=== PATIENT | male | born 1950 | race Caucasian/White ===

== ENCOUNTER → 2025-01-24 | Outpatient (CLI) | payer MEDICARE, SELFPAY ==
[2025-01-24 13:27] LABS: Hematocrit 39.8 % (40-54); Hemoglobin 13.1 g/dL (13.0-16.5); Immature Granulocytes Count 0.020 X10^3/uL (0.0-0.0); Mean Corp Hgb Conc 32.9 g/dL (32-36); Mean Corpuscular Volume 86.9 fL (80-94); Mean Platelet Vol. 9.9 fl (6.2-12.0); NRBC Flagged by Analyzer 0 % (0-5); Platelet Count 168 K/mm3 (150-450); RBC Distribution Width CV 15.3 % (11.6-14.6); RBC Distribution Width SD 48.8 fl (35.1-43.9); Red Blood Count 4.58 M/mm3 (4.6-6.2); White Blood Count 6.6 K/mm3 (4.4-11.0)
--- NOTE | 2025-01-24 13:35 | CT_ITS ---
PROCEDURE: EXTREMITY LOWER WITHOUT CONTRA 01/24/2025 REASON FOR EXAM: PRE OP TECHNIQUE: Procedure Code: CTELWO Modality: CT Procedure: EXTREMITY LOWER WITHOUT CONTRA Coronal and Sagittal reconstruction series were provided. CONTRAST: None One or more dose reduction techniques were used (e.g., Automated exposure control, adjustment of the mA and/or kV according to patient size, use of iterative reconstruction technique). RADIATION DOSE SUMMARY: DLP: 3336 mGycm COMPARISON: None FINDINGS: The hip joint appears intact. There is a 0.9 cm corticated osteochondral fragment at the greater trochanter. The included pelvic bones appear intact. There is hardware in the medial compartment of the knee. There is a 3.0 x 2.0 by 1.6 cm circumscribed lucent lesion in the intercondylar region of the proximal tibia, which can represent hardware failure, or an intraosseous ganglion. There is a large joint effusion at the knee. There is a 0.2 cm corticated osteochondral fragment in the lateral joint space. There is no soft tissue mass or adenopathy. Vascular calcifications are visible. CT/Extremity Lower without Contra IMPRESSION: There is a 0.9 cm corticated osteochondral fragment at the greater trochanter. There is hardware in the medial compartment of the knee. There is a 3.0 x 2.0 b y 1.6 cm circumscribed lucent lesion in the intercondylar region of the proximal tibia, which can represent hardware failur e, or an intraosseous ganglion. There is a large joint effusion at the knee. There is a 0.2 cm corticated osteo chondral fragment in the lateral joint space. Reading Location: [facility]
[2025-01-24 14:17] LABS: CRP < 3.00 mg/L (0.0-3.0)
== END | disposition home or self-care (01) ==
PROVIDERS: PCP Family Medicine; Referring Provider Specialist; Visit Provider Specialist
DX: Z01.818 Encounter for other preprocedural examination (principal); T84.033A Mechanical loosening of internal left knee prosthetic joint, initial encounter; X58.XXXA Exposure to other specified factors, initial encounter; M21.162 Varus deformity, not elsewhere classified, left knee; Z96.652 Presence of left artificial knee joint
CPT/HCPCS: 36415; 73700; 85025; 85652; 86140

== ENCOUNTER 2025-02-17 10:02 | Observation (INO) | payer MEDICARE, SELFPAY ==
--- NOTE | 2025-02-04 16:13 | PAT.ANESEVAL ---
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 When Was Last Pacemaker Check QUESTION #4 FULL TEXT: You/Your Family Experience fever (hyperthermia) with Anesthesia Last Oral Intake Last Oral intake: Last Oral Intake NPO since Meds taken in AM with sips of water? Meds patient instructed to take am of surgery PONV PONV - network/telecom engineer: PONV - network/telecom engineer Female No 02/04/25 13:54 HX of Motion Sickness No 02/04/25 13:54 HX of N/V After Surgery No 02/04/25 13:54 Non-Smoker Yes 02/04/25 13:54 Duration of Surgery greater Yes 02/04/25 13:54 than 60 minutes Number of Risk Factors 2 02/04/25 13:54 PONV Score Moderate Risk 02/04/25 13:54 Height & Weight Height & Weight: Anesthesia: Height & Weight Height 5 ft 10 in 02/23/15 20:18 Respiratory Assessment Respiratory Assessment - network/telecom engineer: Respiratory Tract Infection Hx - network/telecom engineer Hx Respiratory Tract Infection No 02/04/25 13:54 STOP Sleep Apnea STOP Sleep Apnea - network/telecom engineer: STOP Sleep Apnea - network/telecom engineer Hx Hypertension No 02/04/25 13:54 Hx Sleep Apnea Yes 02/04/25 13:54 CPAP Yes: NONCOMPLIANT 02/04/25 13:54 BIPAP No 02/04/25 13:54 Do you snore loudly (louder than talking or can be heard Do you often feel tired/ fatigued/ sleepy during daytime? Has anyone observed you stop breathing during sleep? STOP Results Positive 02/04/25 13:54 QUESTION #5 FULL TEXT : Do you snore loudly (louder than talking or can be heard through closed doors)? 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 Specify any problems Hx of Preganancy in last 3 N/A 02/04/25 13:54 Months Nurse Filling Out Transfusion DSCHRIBER 02/04/25 13:54 & Questions: Date: 02/04/25 02/04/25 13:54 Time: 13:59 02/04/25 13:54 Patient unable to answer at this time (ie. confused, unrespo /Reproduction History /Reproductive History - network/telecom engineer: /Reproductive Hx- network/telecom engineer Hx Now No 02/04/25 13:54 Gestational Age (in weeks): EDC: Hx Hx Para Hx Section SAB No 02/04/25 13:54 Does the father of the baby or his family experience fever w Father of the baby Malignant Hypertension history comment [facility] Medical History (Updated 02/04/25 @ 14:11 by Vivian Calero) Loss of hearing Wears glasses Wears dentures Cancer Depression Diabetes Bladder disease Arthritis High cholesterol Pulmonary embolism DVT (deep venous thrombosis) Injury of back Back pain TIA (transient ischemic attack) Former smoker Shortness of breath on exertion CPAP (continuous positive airway pressure) dependence Leg cramps History of edema Cardiology follow-up encounter History of stress test Home Medications ?Medication ?Instructions ?Recorded ?Last Taken ?Type fluoxetine 20 mg capsule 20 mg PO QHS 02/14/13 02/23/15 History warfarin 5 mg tablet (Jantoven) 2.5 mg PO MO 02/14/13 02/23/15 History cholecalciferol (vitamin D3) 25 50 mcg PO DAILY 02/04/25 Unknown History mcg (1,000 unit) capsule (Vitamin D3) fenofibrate 160 mg tablet 160 mg PO QHS 02/04/25 Unknown History glimepiride 1 mg tablet 1 mg PO QHS 02/04/25 Unknown History pioglitazone 30 mg tablet 30 mg PO QHS 02/04/25 Unknown History tramadol 50 mg tablet 50 mg PO Q12H PRN pain 02/04/25 Unknown History warfarin 5 mg tablet 5 mg PO SUTUTHSA 02/04/25 Unknown History Allergy/AdvReac Type Severity Reaction Status Date / Time No Known Allergies Allergy Verified 02/04/25 13:47 Surgical History (Updated 02/04/25 @ 14:11 by Vivian Calero) Hx of gastric bypass Hx of right knee surgery Hx of left knee surgery Hx of left knee surgery Hx laparoscopic cholecystectomy History of carpal tunnel surgery of right wrist History of carpal tunnel surgery of left wrist Hx of colonoscopy Social History Smoking Status: Former smoker Audit: Pertinent Findings Pertinent Findings EKG Perinent findings: 01/2025: SR with PACs, prolonged QTc (488 ms) Recommendation Anesthesia Recommendation Anesthesia recommendation: OPTIMIZED for anesthesia (EKG on DOS)
--- NOTE | 2025-02-05 10:32 | HP.PCM_ITS ---
History and Physical History and Physical? Patient Name: Villa Paulino : 1950From:? LEONIDES ANDRE PA-C? DATE OF PRE-OPERATIVE EXAM: 02/03/2025 DATE OF SURGERY:? 02/17/2025 SCHEDULED PROCEDURE:? Left knee conversion unicompartmental knee replacement to a total knee arthroplasty HISTORY OF PRESENT ILLNESS: Preoperative history and physical exam was performed on February 03, 2025.? This is a 74-year-old male who has been having ongoing pain in his left knee.? Patient has had previous bilateral unicompartmental knee replacements by Dr. Drake Woodard.? Left knee was on May 12, 2009 and right knee October 28, 2008.? Patient's left knee has been getting worse over the past year.? Patient has had a previous injury couple years ago when he slipped and fell.? He was not having continuous pain initially after that incident.? Patient's pain is now increased with going up and down stairs and walking.? He has difficulty with activities of daily living including working outside, kneeling, and leisure activities.? He denies instability.? He has been using Tylenol for pain control with temporary help.? He has tried rest and elevation with minimal relief.? Patient has had to use a cane on occasion.? We have reached up to the primary care provider or clearance in which he has received.? Patient has history of previous DVT in the lower extremity and pulmonary embolism which she currently takes Coumadin.? We are recommending perioperative management with the Coumadin from the primary care provider.? He also has type 2 diabetes mellitus in which his A1c was 7.4.? Previous inflammatory lab work was not consistent with infection.? He currently denies any recent chest pain, short of breath, fevers chills or recent infections.? Patient is a very poor historian with regards to his medical history. REVIEW OF SYSTEMS: Review Of Systems: Constitutional: Reports hard of hearing but denies anorexia, anxiety, change in appetite, fever, weight change, and vision problems. Cardiovasular: Denies chest pain, heart murmur, irregular heartbeat and peripheral vascular disease. Respiratory: Denies asthma, cough, pneumonia, sleep apnea, shortness of breath, tuberculosis and wheezing. Gastrointestinal: Reports diarrhea, but denies constipation, heartburn, nausea, bloody stools and vomiting, and difficulty swallowing. Genitourinary: Denies incontinence. Musculoskeletal: Reports gait disturbance, leg swelling, pain and weakness. Skin: Denies Raynaud's, history of shingles and tattoo. Neurological: Reports ambulatory dysfunction and numbness/tingling but denies dizziness and tremor. Psychiatric: Reports depression, but denies anxiety, insomnia, mental illness and stress. Hematologic/Lymphatic: Reports bleeding/bruising tendency, but denies anemia and past transfusion. Reviewed and updated. PAST MEDICAL HISTORY: Advance Care Plan: No Advance Directives Effective Date: 05/11/2022 Past Medical History: Medical Problems: Diabetes, Arthritis, Skin Cancer Back Problems - lumbar radiculopathy?? DVT - in bilateral legs to groin - around 2009 had another DVT when taken off of warfarin in the past? Pulmonary Embolism - around 2009 Acid Reflux, Depression, chronic anticoagulation Accidents: Fracture - (05/10/2022) LT ANKLE? Other - (11/08/2022) LT SHOULDER INJURY / FELL? Surgical Hx: Knee Surgery - RIGHT KNEE,2001 Dr Woodard Acid Reflux - (2004) Gallbladder - (06/08/2007) Knee Surgery - (2001) LEFT KNEE, DR. WOODARD Carpal Tunnel Release LT - (2007) DR. WOODARD Carpal Tunnel Release RT - (2007) DR. WOODARD gastric bypass 1994 Knee Replacement Unicompartmental RT - (10/28/2008) DR. WOODARD, [facility] small skin cancer lesion removed from head 4-5 yr ago LT Uni Knee Replacement - (05/12/2009) [email or web address] Anesthesia Complications: None Assistive Devices: Glasses, Dentures, Cane Reviewed and updated. 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 Personal Habits:? Cigarette Use: Former.Smokeless Tobacco: Never Used Smokeless Tobacco.E-Cigarette Use: Never used.Alcohol: Occasionally.Drug Use: Currently uses Marijuana.Enjoy Exercising: Exercises 1-3 x/month. Reviewed, no changes. VITALS: Ht: 68.5 Wt: 292lb Wt k.451 BMI: 43.7 BP: 136/78 Pulse: 61 Resp: 18 T: 97.8 T: 36.6C Pain Level: 7/10 O2SatR: 97 ALLERGIES: Cephalosporins - 2020 with Keflex prescription? MEDICATIONS: Warfarin Sodium 5 mg 1 po daily, Fenofibrate 134 mg 1 by mouth every day, Vitamin D3 25 mcg (1000 Ut) 1 a day, Rapid Release Tylenol? as needed, Tramadol HCL 50 mg take 1 tablet by mouth every 8 hours as needed for pain, Fluvoxamine Maleate 50 mg take 1 tablet by mouth once daily, Citalopram Hydrobromide 40 mg take 1 tablet by mouth once daily, Pioglitazone HCL 30 mg take 1 tablet by mouth once daily, Enoxaparin Sodium 100 mg/ml PRE-OP EXAM:? General appearance:NORMAL? ? ? Other: Eyes: Conjunctivae and lids: NORMAL? Pupils: ERR Ears, Nose, Mouth, and Throat: NORMAL? Other: Inspection of lips, teeth and gums: NORMAL? ?Other: Neck: Examination of neck: no masses noted. Respiratory: Assessment of respiratory effort: NORMAL? ?Other: ?Auscultation of lungs: clear to auscultation no wheezes, rhonchi or rales. Cardiovascular:? Auscultation of heart: regular rate and rhythm, no murmurs, gallops or rubs. PHYSICAL EXAMINATION: On exam patient does ambulate with antalgic gait.? Previous incision is well- healed without erythema or signs of infection.? Trace effusion.? Tenderness to palpation of the medial aspect of the knee and posterior knee.? Range of motion: 0 extension to 95 flexion. IMAGING STUDIES: Previous x-rays of the left knee were reviewed which shows well fixed implants with increased bone spurring of the lateral aspect of the knee and in the patellofemoral compartment.? The between the components is significantly diminished consistent with polyethylene wear. IMPRESSION: 1.? 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 Type 2 diabetes mellitus: A1c 7.4 3.? Chronic back pain with radiculopathy 4.? History of DVT lower extremity/pulmonary embolism: Currently on Coumadin 5.? Gastroesophageal reflux disease 6.? Depression 7.? Morbid obesity with BMI 43.7 PLAN: Dr. Pascual Garcia did discuss and review with the patient all treatment options including surgical versus nonsurgical options.? I will continue plan established by Dr. Pascual Garcia.? Patient does wish to proceed with the above-stated procedure.? Potential risks, benefits, and complications of the procedure were discussed in detail including but not limited to , infection, nerve and blood vessel damage, persistent pain, numbness, tingling, paresthesias, blood clot, pulmonary embolism, and requirement for possible further surgery.? The patient expressed full understanding and has no further questions for the doctor.? Patient does agree to proceed with the above-stated procedure and has signed the surgery consent form. POST-OP MEDICATION PLAN: Pain medications: Postoperative pain regimen will be initiated by Dr. Pascual Garcia in the hospital.? Patient uses occasional tramadol which he has been getting from the primary care provider.? He has been advised that postoperatively he will not combined his tramadol with pain regimen will be initiated by Dr. Pascual Garcia.? He did voice understanding.? Patient does have a walker that he will bring to the hospital.? Patient was a very poor historian in which we didn't need to reach out to patient's primary care provider with regards to Coumadin therapy and his cephalosporin allergy.? Primary care provider stated that patient had a significant reaction to Keflex including facial swelling which required trip to the emergency room.? 4 Coumadin therapy please see below.? Patient also on preoperative lab work tested positive for MSSA.? His A1c is currently 7.4.? Due to the MSSA and A1c patient will be placed on doxycycline for 2 weeks postoperatively.? He has been advised that he has more sensitive to the sunlight on this medication and should take appropriate precautions.? Also recommended probiotics while using the antibiotic.? Patient was advised that care management team will be on board for safe and appropriate discharge planning.? Primary care provider also signed off and cleared patient based on his EKG findings. DVT prophylaxis plan: We are continuing forward with primary care provider recommendations with regards to perioperative management of the Coumadin.? Primary care provider stated that patient should stop the medication 7 days prior to surgery.? He will also be bridged on Lovenox.? Patient has past history of DVT and pulmonary embolism.? We did reach out to the patient and let him know of these recommendations.? He is to contact his primary care provider to make sure he has all medications perioperatively.? Patient is also aware that postoperatively he will need to follow with his primary care provider for postoperative INR check and bridging until he is therapeutic with his INR.? Patient will also use WALLY hose for 2 weeks postoperatively.? We also recommended getting up and walking every hour while awake for a another way to help prevent DVT. This dictation was created using voice recognition software. Phonetic and/or grammatical errors may exist. ___? I have re-examined the patient.? There are no clinical changes since date of exam. ___? See progress notes for changes. ___? Dictated on admission Date: ? ? ?Time: Signature:
[2025-02-17] VITALS (14 sets, daily range): BP systolic 90–145; BP diastolic 48–77; PULSE 54–81; RESP 16–20; TEMP 36.1–37.2; O2SAT 92–100; BMI 43.1
--- OUTSIDE RECORDS SUMMARY | 2025-02-17 08:00 | XMS RPT_ITS | CCD ---
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 ORDERS Order Description Priority Entered Acknowledged Collected Completed 1 of 2 Order Sheet [Electronically signed by Hilario Pryor D.O. (05/25/2024 20:21 EDT)] 2 of 2 Normal [facility] ED SUPER BILLon 05-26-2024 ED SUPER BILL [address] [address] [id number] 05/25/2024 Patient: SUNSHINE EGAN Sex: Male : 1950 Age: 73y Item Professional Category Description Facility Code Code Quantity Fee Total Nurse/E/M EMERGENCY [id number] 1 $0.00 $0.00 DEPARTMENT VISIT MODERATE SEVERITY (80651) Grand Total $0.00 Providers Hilario Pryor D.O. Chief Complaint Injury to CHEST. Principal Diagnosis Acute traumatic pain in the chest. Probable single right rib fracture. 1 of 2 Superbill ICD-10 Codes G89.11: Acute pain due to trauma 2 of 2 Normal [facility] ED VISIT SUMMARYon ED VISIT SUMMARY Visit Overview Visit Overview [address] [address] [id number] 05/25/2024 Patient: SUNSHINE EGAN Sex: Male : 1950 Age: 73y 05/26/2024 03:08 PM EDT ED Arrival:17:01 05/25/2024 EDT Status: Recent Travel:no Language:eng Adv Directive:No Isolation Status: Ethnicity:N Fall Risk:no risk Infectious Disease Exposure:no Measurements:260.0 lb / 117.9 kg Self-Harm Status:risk Sepsis Screen:negative Chief Complaint:FALL ALLERGIES No Known Drug Allergies HOME MEDICATIONS Unable To Obtain PAST MEDICAL HISTORY / PROBLEMS Depression Diabetes Mellitus Type 2 Hyperlipidemia See nurses notes Skin Cancer 1 of 3 Visit Overview PAST SURGICAL HISTORY Cholecystectomy Knee Surgery SOCIAL HISTORY Smoking status: No Alcohol use: No Drug use: No ED COURSE MEDICATIONS GIVEN IN EMERGENCY DEPARTMENT 18:04 05/25/24 Ibuprofen (Motrin) PO 800 mg IV SITE INFORMATION INTAKE OUTPUT REASSESMENT (most recent) 17:22 05/25/24. Ambulatory to room. GENERAL / NEURO / PSYCH: Alert. Oriented X 4. Appears in no acute distress. RESPIRATORY: Respirations not labored. Breath sounds within normal limits. CVS: Right rib area: tenderness. Pulses within normal limits. Capillary refill less than 2 seconds. GI / : Abdomen soft and nontender. EXTREMITIES: Extremities exhibit normal ROM. Neuro-vascular status intact to the extremity. SKIN: Skin is warm and dry. VITAL SIGNS First Vitals Last Vitals Temp 17:14 05/25/24 98.8 F Temp 18:20 05/25/24 BP 17:14 05/25/24 145/70 BP 18:20 05/25/24 143/75 HR 17:14 05/25/24 81 HR 18:20 05/25/24 87 RR 17:14 05/25/24 18 RR 18:20 05/25/24 16 O2 Sat 17:14 05/25/24 95% O2 Sat 18:20 05/25/24 97% Pain 17:14 05/25/24 5 Pain 18:20 05/25/24 ETCO2 17:14 05/25/24 ETCO2 18:20 05/25/24 2 of 3 Visit Overview First Vitals Last Vitals GCS 17:14 05/25/24 GCS 18:20 05/25/24 RTS 17:14 05/25/24 RTS 18:20 05/25/24 PROCEDURES NURSING INTERVENTIONS LABS / STUDIES LABS / STUDIES ORDERED Ribs R w/Chest Expiration LABS / STUDIES PENDING IMPORT RIBS RT UNILAT W/CHEST EXPIRATION CLINICAL IMPRESSION ACUTE TRAUMATIC PAIN IN THE CHEST PROBABLE SINGLE RIGHT RIB FRACTURE 3 of 3 Normal [facility] ED VITALS FLOW SHEETon 05-26 ED VITALS FLOW SHEET Vitals Vital Sign Flow Sheet [address] [address] [id number] 05/25/2024 Patient: SUNSHINE EGAN Sex: Male : 1950 Age: 73y Measurements Wt: 117.9 kg Measured Time BP MAP HR RR O2Sat ETCO2 Temp Pain GCS RTS 18:20 05/25/2024 143/75 98 87 16 97% 17:14 05/25/2024 145/70 95 81 18 95% 98.8 F 5 1 of 1 Normal [facility] RIBS RT UNILAT W/CHEST EXPIR ATIONon 05-25-2024 RIBS RT UNILAT W/CHEST EXPIRATION [address] [address] Patient: SUNSHINE EGAN Phone#: : 1950 Age: 73 Gender: M Pt. Type: ER Account: [id number] Location: 052 Ordering: HILARIO PRYOR Exam Date: 05/25/2024/17:33 Family Phys: GUY JIMÉNEZ Charge Code: 125231 Physician: [place] Order #: [id number] Dose#: PROCEDURE: X-RAY RIBS RT UNILAT WITH EXPIRATION CHEST COMPARISON: None. INDICATIONS: Trauma. FINDINGS: LUNGS: Normal. No significant pulmonary parenchymal abnormalities. VASCULATURE: Normal. Unremarkable pulmonary vasculature. CARDIAC: Normal. No cardiac silhouette abnormality or cardiomegaly. MEDIASTINUM: Normal. No visible mass or adenopathy. PLEURA: Normal. No effusion or pleural thickening. BONES: There is spurring of the inferior glenoid and humeral head. Degenerative changes of the spine. No appreciable acute osseous abnormality. OTHER: Negative. CONCLUSION: No appreciable acute osseous abnormality. Note: A nondisplaced fracture may not be evident on radiograph. Dictated by: Fay Becker MD on 05/25/2024 at 21:06 Approved by: Fay Becker MD on 05/25/2024 at 21:09 Normal [facility] Hemoglobin A1con 05-20-2018 Hemoglobin A1c/Hemoglobin.total mass fraction (Bld) 7.9 % High 4.3-5.6 [facility] Comment on above: Performed By: #### H BA1C #### [facility] Routine Lab [address] [place], [place] [address] Hemoglobin A1c/Hemoglobin.total mass fraction (Bld) 180 mg/dL Normal [facility] Comment on above: Performed By: #### H BA1C #### [facility] Routine Lab [address] [place], [place] [address] Encounters Encounter Date Encounter Type Care Provider Facility Start: 02-17-2025 ambulatory Pascual Garcia Facility: [facility] Start: 12-11-2024 End: 12-11-2024 ambulatory GUY JIMÉNEZ [facility] Start: 05-25-2024 End: 05-25-2024 Emergency department patient visit HILARIO Dipak PRYOR [facility] Start: 04-24-2024 ambulatory [facility] Start: 03-20-2024 End: 03-20-2024 [facility]ulatory [facility] Payers Date Payer Category Payer Self-pay 2024 Unknown [id number] 1950 Unknown [id number] 1950 Unknown [id number] 1950 Unknown [id number] [id number] Medicare [id number] Unknown [id number] [id number] [id number] Clinical Note 05-26-2024 Note Date & Type Note Facility 05-26-2024 Note Discharge Instructio ns Discharge Summary [address] [address] [id number] 05/25/2024 Patient: SUNSHINE EGAN Sex: Male : 1950 Age: 73y Thank you for visiting [facility]. You have been evaluated today by Hilario Pryor D.O. for the following condition(s): Principal Diagnosis Acute traumatic pain in the chest. Probable single right rib fracture. INSTRUCTIONS Apply ice. Prescription Medications: Percocet 5 mg-325 mg tablet: Take 1 tablet by mouth three times a day as needed for pain for 4 days, dispense 12 tablet. Refills 0. Pharmacy: [facility] [id number] [place] [address]. Follow-up with: Guy Jiménez MD, [facility], Phone: [phone], [address] [place] [address]. Follow up in three days. Call for an appointment. (return if increasing pain problems or shortness of breath. I believe you have a rib fracture. You can also try putting ice on the area which hurts. takes Motrin for pain and Percocet for severe pain. return if any problems or concerns). You have been given the following additional information: Rib Fracture 1 of 4 Discharge Instructions Patient Signature Facility Quote Clerk Date/Time General Instructions with ExitWriter [facility] [address] [place] [address] [id number] 05/25/2024 Patient: SUNSHINE EGAN Sex: Male : 1950 Age: 73y Thank you for visiting [facility]. You have been evaluated today by Hilario Pryor D.O. for the following condition(s): Principal Diagnosis Acute traumatic pain in the chest. Probable single right rib fracture. INSTRUCTIONS Apply ice. Prescription Medications: Percocet 5 mg-325 mg tablet: Take 1 tablet by mouth three times a day as needed for pain for 4 days, dispense 12 tablet. Refills 0. Pharmacy: [facility] [id number] [place] [address]. Follow-up with: Guy Jiménez MD, [facility], Phone: [phone], [address] [place] [address]. Follow up in three days. Call for an appointment. (return if increasing pain problems or shortness of breath. I believe you have a rib fracture. You can also try putting ice on the area which hurts. 2 of 4 Discharge Instructions takes Motrin for pain and Percocet for severe pain. return if any problems or concerns). ADDITIONAL INFORMATION Rib Fracture You broke one or more ribs. This is called a rib fracture. Rib fractures don't need a cast like other bones. They will heal by themselves in about 4 to 6 weeks. The first 3 to 4 weeks will be the most painful. During this time deep breathing, coughing, or changing position from sitting to lying down, may cause the broken ends to move slightly. Home care Rest. You should not be doing any heavy lifting or strenuous exertion until the pain goes away. It hurts to breathe when you have a broken rib. This puts you at risk of getting pneumonia from poor airflow through your lungs. To prevent this: o Take several very deep breaths once an hour while you're awake. Breathe out through pursed lips as if you are blowing up a balloon. If possible, actually blow up a balloon or a rubber glove. This exercise builds up pressure inside the lung and prevents collapse of the small air sacs of the lung. This exercise may cause some pain at the site of injury. This is normal. o You may have gotten a breathing exercise device called an incentive spirometer. Use it at least 4 times a day, or as directed. Apply an ice pack over the injured area for 15 to 20 minutes every 1 to 2 hours. You should do this for the first 24 to 48 hours. To make an ice pack, put ice cubes in a plastic bag that seals at the top. Wrap the bag 3 of 4 Discharge Instructions in a clean, thin towel or cloth. Never put ice or an ice pack directly on the skin. Keep using ice packs as needed for the relief of pain and swelling. You may use [id number] pain medicine to control pain, unless another pain medicine was prescribed. If you have chronic liver or kidney disease or ever had a stomach ulcer or GI (gastrointestinal) bleeding, talk with your healthcare provider before using these medicines. If your pain is not controlled, contact your healthcare provider. Sometimes a stronger pain medicine may be needed. A nerve block can be done in case of severe pain. It will numb the nerve between the ribs. Follow-up care Follow up with your healthcare provider, or as advised. In rare cases, a broken rib will cause complications in the first few days that may not be clearly seen during your initial exam. This can include collapsed lung, bleeding around the davonte (more content not included)... [facility] Clinical Note 11-10-2023 Note Date & Type Note Facility 11-10-2023 Note . MICRO - Microbiology PROCEDURE: Blood Culture (bacterial) [*1] SOURCE: Blood BODY SITE: Arm R COLLECTED DATE/TIME: 11/04/2023 22:30 EDT RECEIVED DATE/TIME: 11/05/2023 14:28 EDT START DATE/TIME: 11/05/2023 14:33 EDT FREE TEXT SOURCE: FINAL REPORTS Final Report [] Verified Date/Time/Personnel: 11/10/2023 14:59 EDT Blood Culture: No Growth at 5 days. PRELIMINARY REPORTS Preliminary Report [] Verified Date/Time/Personnel: 11/05/2023 15:59 EDT Culture has been received in lab and is no growth to date. Routine cultures are held for 5 days. Performing Locations *1: This test was performed at: [address], [address] [place] [address] ([place]) Clinical Note 11-10-2023 Note Date & Type Note Facility 11-10-2023 Note . MICRO - Microbiology PROCEDURE: Blood Culture (bacterial) [*1] SOURCE: Blood BODY SITE: Anticubital, Left COLLECTED DATE/TIME: 11/04/2023 23:02 EDT RECEIVED DATE/TIME: 11/05/2023 14:28 EDT START DATE/TIME: 11/05/2023 14:33 EDT FREE TEXT SOURCE: FINAL REPORTS Final Report [] Verified Date/Time/Personnel: 11/10/2023 14:59 EDT Blood Culture: No Growth at 5 days. PRELIMINARY REPORTS Preliminary Report [] Verified Date/Time/Personnel: 11/05/2023 15:59 EDT Culture has been received in lab and is no growth to date. Routine cultures are held for 5 days. Performing Locations *1: This test was performed at: [address], [address] [place] [address] ([place]) Summary Purpose Family History No Family History Records FoundNo Family History Records FoundNo Family History Records FoundNo Family History Records FoundNo Family History Records FoundNo Family History Records Found Advance Directives No Advanced Directives Records FoundNo Advanced Directives Records FoundNo Advanced Directives Records FoundNo Advanced Directives Records FoundNo Advanced Directives Records FoundNo Advanced Directives Records Found Additional Source Comments (unrecognized sect ion and content) No Status Records FoundNo Status Records FoundNo Status Records FoundNo Status Records FoundNo Status Records FoundNo Status Records Found INFORMATION SOURCE (unrecogn ized section and content) DATE CREATED AUTHOR 05/21/2018 [facility] DATE CREATED AUTHOR AUTHOR'S ORGANIZ ATION 2023 [facility] ([place]) DATE CREATED AUTHOR AUTHOR'S ORGANIZ ATION 04/26/2024 [facility] DATE CREATED AUTHOR AUTHOR'S ORGANIZ ATION 12/15/2024 [facility] DATE CREATED AUTHOR AUTHOR'S ORGANIZ ATION 12/18/2024 [facility] DATE CREATED AUTHOR AUTHOR'S ORGANIZ ATION 01/23/2025 [facility] FOR RECORDS PERTAINING TO PATIENTS WHO ARE OR HAVE BEEN ENROLLED IN A CHEMICAL DEPENDENCY/SUBSTANCEABUSE PROGRAM, SOME INFORMATION MAY BE OMITTED. This clinical summary was aggregated from multiple sources. Caution should be exercised in using it in the provision of clinical care. This summary normalizes information from multiple sources, and as a consequence, information in this document may materially change the coding, format and clinical context of patient data. In addition, data may be omitted in some cases. CLINICAL DECISIONS SHOULD BE BASED ON THE PRIMARY CLINICAL RECORDS. [employer] provides no warranty or guarantee of the accuracy or completeness of information in this document.
[2025-02-17 08:46] LABS: INR Fingerstick 1.9
[2025-02-17 08:58] LABS: Prothrombin Time (Protime)PT. 14.7 SECONDS (11.7-14.9)
[2025-02-17] MEDS: LR 1,000 ML - BOLUS PREOP 999 ML IV (09:02)
[2025-02-17 09:05] LABS: Magnesium 2.0 mg/dL (1.5-2.2)
[2025-02-17] MEDS: Vancomycin HCl 2,000 MG in 0.9% Normal Saline (500mL Bag) 500 ML 250 MG IV ×2 (09:33→23:15)
[2025-02-17] MEDS: Magnesium 1 GM over 15 mins IV (09:33)
--- NOTE | 2025-02-17 09:43 | PCM.PRE.AN2 ---
ASA Classification* ASA Classification ASA Classification: 3 Assessment & Plan Anesthesia* Anesthesia Assessment Anesthesia Assessment: Discussed sedation and/or anesthesia options, risks, benefits, and alternatives with patient/parents/legal guardian/POA. Questions invited. The patient/parents/legal guardian/POA seems to understand and agrees to proceed with anesthesia plan. Reviewed the physical assessment, medical history, allergy history and patient home medications list prior to surgery/procedure/anesthetic and documented any changes. Performed airway and anesthesia risk assessments. Anesthesia Type Anesthesia Type: Spinal and Block Anesthesia Focused Assessment* Temperature: 97.0 F Pulse Rate: 54 Blood Pressure: 140/62 Respiratory Rate: 18 Pulse Ox: 100 Airway Assessment Mouth opens: >3 cm Mallampati Score: II Labs Anesthesia Preop lab: CBC WBC, (4.4-11.0) 6.6 K/mm3 01/24/25, 13:07 RBC, (4.6-6.2) 4.58 M/mm3 L 01/24/25, 13:07 Hgb, (13.0-16.5) 13.1 g/dL 01/24/25, 13:07 Hct, (40-54) 39.8 % L 01/24/25, 13:07 Plt Count, (150-450) 168 K/mm3 01/24/25, 13:07 CHEMISTRY Potassium, (3.5-5.1) 3.6 mmol/L 02/23/15, 17:10 Sodium, (136-145) 139 mmol/L 02/23/15, 17:10 Magnesium, (1.5-2.2) 2.0 mg/dL Today, 08:38 BUN, (7-18) 19 mg/dL H 02/23/15, 17:10 Creatinine, (0.70-1.30) 0.93 mg/dL 02/23/15, 17:10 Glucose, (70-110) 202 mg/dL H 02/23/15, 17:10 POC Glucose, (74-106) 141 mg/dL H Today, 08:48 COAG PT, (11.7-14.9) 14.7 SECONDS Today, 08:35 Pre-Assessment Diagnosis/Proposed Procedure Planned Operative Procedure(s): CONVERSION LEFT UNICOMPARTMENTAL KNEE ARTHROPLASTY TO LEFT TOTAL KNEE ARTHROPLASTY Anesthesia History Anesthesia History - cash management coordinator: Anesthesia History - cash management coordinator Hx Hospitalization No 02/04/25 13:54 Any Problems With Anesthesia No 02/04/25 13:54 Cholinesterase deficiency No 02/04/25 13:54 You/Your Family Experience No 02/04/25 13:54 fever (hyperthermia) with Relationship Recent Exposure to Contagious No 02/17/25 08:55 Disease Does patient have nerve No 02/04/25 13:54 stimulator Patient instructed to have device shut off --Does patient have Pacemaker No 02/17/25 08:55 or ICD? When Was Last Pacemaker Check QUESTION #4 FULL TEXT: You/Your Family Experience fever (hyperthermia) with Anesthesia Last Oral Intake Last Oral intake: Last Oral Intake NPO since 06:00 02/17/25 08:55 Meds taken in AM with sips of No 02/17/25 08:55 water? Meds patient instructed to take am of surgery PONV PONV - cash management coordinator: PONV - cash management coordinator Female No 02/04/25 13:54 HX of Motion Sickness No 02/04/25 13:54 HX of N/V After Surgery No 02/04/25 13:54 Non-Smoker Yes 02/04/25 13:54 Duration of Surgery greater Yes 02/04/25 13:54 than 60 minutes Number of Risk Factors 2 02/04/25 13:54 PONV Score Moderate Risk 02/04/25 13:54 Height & Weight Height & Weight: Anesthesia: Height & Weight Height 5 ft 10 in 02/17/25 08:55 Weight: 136.4 kg 02/17/25 08:55 Body Mass Index (BMI) 43.1 02/17/25 08:55 Respiratory Assessment Respiratory Assessment - cash management coordinator: Respiratory Tract Infection Hx - cash management coordinator Hx Respiratory Tract Infection No 02/04/25 13:54 STOP Sleep Apnea STOP Sleep Apnea - cash management coordinator: STOP Sleep Apnea - cash management coordinator Hx Hypertension No 02/04/25 13:54 Hx Sleep Apnea Yes 02/04/25 13:54 CPAP Yes: NONCOMPLIANT 02/04/25 13:54 BIPAP No 02/04/25 13:54 Do you snore loudly (louder than talking or can be heard Do you often feel tired/ fatigued/ sleepy during daytime? Has anyone observed you stop breathing during sleep? STOP Results Positive 02/04/25 13:54 QUESTION #5 FULL TEXT : Do you snore loudly (louder than talking or can be heard through closed doors)? Tobacco Use History Tobacco Use History - cash management coordinator: Tobacco Use History - cash management coordinator Tobacco Use Smoking Status Former smoker 02/04/25 13:54 Hx Tobacco Use Yes 02/04/25 13:54 Years Smoking Packs Smoked per Day Smoking Cessation Date was No - quit smoking greater 02/04/25 13:54 within the last 15 years than 15 years ago Hx Smoking Cessation Date Hx Smoking Cessation Counseling Hematologic Medial History Hematologic Hx - cash management coordinator: Hematologic Medical Hx - retail agent Hx of Blood Transfusion No 02/04/25 13:54 Hx of Transfusion in last 3 No 02/04/25 13:54 Months Date of Last Transfusion (if within last 3 months) Ever experience any problems No 02/04/25 13:54 with transfusion(s)? Specify any problems Hx of Preganancy in last 3 N/A 02/04/25 13:54 Months Nurse Filling Out Transfusion DSCHRIBER 02/04/25 13:54 & Questions: Date: 02/04/25 02/04/25 13:54 Time: 13:59 02/04/25 13:54 Patient unable to answer at this time (ie. confused, unrespo /Reproduction History /Reproductive History - cash management coordinator: /Reproductive Hx- cash management coordinator Hx Now No 02/04/25 13:54 Gestational Age (in weeks): EDC: Hx Hx Para Hx Section SAB No 02/04/25 13:54 Does the father of the baby or his family experience fever w Father of the baby Malignant Hypertension history comment Active Medications Active Medications: Current Medications Generic Name Dose Route Start Last Admin Trade Name Freq PRN Reason Stop Dose Admin Acetaminophen 1,000 mg 02/17/25 10:00 02/17/25 09:39 Acetaminophen 500 Mg Tablet PO 02/17/25 10:01 1,000 mg PREOP ONE Administration Celecoxib 400 mg 02/17/25 10:00 02/17/25 09:40 Celecoxib 200 Mg Capsule PO 02/17/25 10:01 400 mg PREOP ONE Administration Tranexamic Acid 2,000 mg/ 0 mg 02/17/25 10:00 Sodium Chloride 100 ml OPERA.SITE 02/17/25 10:01 X1 ONE Gabapentin 600 mg 02/17/25 10:00 02/17/25 09:39 Gabapentin 600 Mg Tablet PO 02/17/25 10:01 600 mg PREOP ONE Administration Lactated Ringer's 1,000 mls @ 999 mls/hr 02/17/25 10:00 02/17/25 09:02 IV 02/17/25 11:00 999 mls/hr .Q1H1M FAWAD Administration Lactated Ringer's 1,000 mls @ 999 mls/hr 02/17/25 11:00 IV 02/17/25 12:00 .Q1H1M FAWAD Lactated Ringer's 1,000 mls @ 125 mls/hr 02/17/25 12:00 IV 02/17/25 19:59 .Q8H FAWAD Clindamycin Phosphate 900 mg in 50 mls @ 75 mls/hr 02/17/25 10:00 Cleocin IV 02/17/25 10:39 INTRAOP ONE Vancomycin HCl 2,000 mg/ 540 mls @ 250 mls/hr 02/17/25 08:30 02/17/25 09:33 Sodium Chloride IV 02/17/25 10:39 250 mls/hr INTRAOP ONE Administration Insulin Human Lispro 1 - 6 unit 02/17/25 10:00 Insulin Lispro 100 Unit/Ml Insuln.Pen SC 02/17/25 16:00 Q4H PRN PRN BG>/= 180, SEE PROTOCOL Protocol PFSH Medical History Loss of hearing Wears glasses Wears dentures Cancer Depression Diabetes Bladder disease Arthritis High cholesterol Pulmonary embolism DVT (deep venous thrombosis) Injury of back Back pain TIA (transient ischemic attack) Former smoker Shortness of breath on exertion CPAP (continuous positive airway pressure) dependence Leg cramps History of edema Cardiology follow-up encounter History of stress test Home Medications ?Medication ?Instructions ?Recorded ?Last Taken ?Type fluoxetine 20 mg capsule 20 mg PO QHS 02/14/13 02/16/25 History warfarin 5 mg tablet (Jantoven) 2.5 mg PO MO 02/14/13 02/03/25 History cholecalciferol (vitamin D3) 25 50 mcg PO DAILY 02/04/25 02/16/25 History mcg (1,000 unit) capsule (Vitamin D3) fenofibrate 160 mg tablet 160 mg PO QHS 02/04/25 02/16/25 History glimepiride 1 mg tablet 1 mg PO QHS 02/04/25 02/16/25 History pioglitazone 30 mg tablet 30 mg PO QHS 02/04/25 02/16/25 History tramadol 50 mg tablet 50 mg PO Q12H PRN pain 02/04/25 Unknown History warfarin 5 mg tablet 5 mg PO SUTUTHSA 02/04/25 02/09/25 History Allergy/AdvReac Type Severity Reaction Status Date / Time cephalexin (From Keflex) Allergy Anaphylaxis Verified 02/14/25 09:23 Surgical History Hx of gastric bypass Hx of right knee surgery Hx of left knee surgery Hx of left knee surgery Hx laparoscopic cholecystectomy History of carpal tunnel surgery of right wrist History of carpal tunnel surgery of left wrist Hx of colonoscopy Social History Smoking Status: Former smoker Review of Systems (Anesthesia) ROS Narrative System reviewed and no additional complaints, except as documented.
[2025-02-17] MEDS: Midazolam 2 MG/2 ML Syringe IV (09:54)
--- NOTE | 2025-02-17 10:03 | RAD_ITS ---
PROCEDURE: KNEE 1 OR 2 VIEWS 02/17/2025 REASON FOR EXAM: TKA TECHNIQUE: Procedure Code: RADK Modality: DX Procedure: KNEE 1 OR 2 VIEWS Left knee three views COMPARISON: None FINDINGS: There is a total knee prosthesis in position. Surgical xochilt and soft tissue air noted consistent with recent surgery. Mineralization is normal. Vascular calcifications are present. RAD/Knee 1 or 2 Views IMPRESSION: Hardware in position. Reading Location: [facility]
[2025-02-17] MEDS: Lidocaine 1% (5 ml sdv) 5 ML Vial 8 ML IV (10:20)
[2025-02-17] MEDS: TXA 2000mg in NS 100ml (Placed in Wound) OPERA.SITE (11:18)
[2025-02-17] MEDS: JPS (Morphine 10mg/ml) OPERA.SITE (12:20)
[2025-02-17] MEDS: LR 1,000 ML - BOLUS POSTOP 999 ML IV (13:55)
--- NOTE | 2025-02-17 14:03 | PCM.OPRPT ---
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, metallosis and progression ofLeft knee primary osteoarthritis Surgery/Procedure Performed: Left knee minimally invasive robotic assisted total arthroplasty cocoa mill operator: Yes Nursing Resident: Keren Acevedo Tasks completed by dental assistant teacher: Other (See body of operative report) Additional assistant professor of history?: Yes Additional Talent Partner #2: Chandler Colmenares Tasks completed by assistant professor of history #2: Opening and Retracting Additional assistant professor of history?: No Type of Anesthesia: Spinal RN Documented Start/Stop Times: Operation Date: 02/17/25 10:00 Case Time Into Pre-Op 02/17/25 07:51 Anesthesia Start 02/17/25 10:15 Into Room 02/17/25 10:15 Procedure Start 02/17/25 10:36 Procedure End 02/17/25 13:06 Anesthesia End 02/17/25 13:14 Out of Room 02/17/25 13:14 Into Recovery 02/17/25 13:15 Procedure Start Time: 10:36 Procedure Stop Time: 13:06 Select all DRAINS/GRAFTS/IMPLANTS that apply: Prosthetic device Prosthetic device details: See body of operative report Special Medications: 2 g Ancef, 1 g TXA at incision, 1 g TXA closure, 10 mg Decadron, joint cocktail (5 mg Duramorph, 30 mL of 0.5% Ropivicaine, 1000 units of epinephrine, 30 mg of Toradol) Estimated Blood Loss: 750 mL Fluids Replaced: 2 L crystalloid Specimen collected: Yes Description of specimen(s) removed: Bony cuts, 3 separate specimens were sent to microbiology Description of surgery: Implants used: 1. Lyons size 4 posterior stabilized left femoral component with 5 mm distal one 5 mm posterior augment 2. Anh size 5 universal tibial baseplate 3. Lyons X3 10 mm posterior stabilized polyethylene Brief history operative indications: 74-year-old M with history of left knee osteoarthritis with radiographic findings with loss of joint space, osteophyte formation and subchondral sclerosis. Failed conservative measures as mentioned in the H&P. Discussion of total knee arthroplasty as well as risk and benefits were discussed the patient including but not limited to blood loss, DVTs, PEs, neurovascular damage, general risk of anesthesia including loss of life, and stiffness or instability were discussed with patient. Patient demonstrated understanding and was able to sign informed consent. Procedure: On the date of procedure patient's left lower extremity was marked in the preoperative area. The patient was then taken back to the operating room where the patient was placed on the table in the supine position. All bony prominences were identified a well-padded. Anesthesia assumed control of the C-spine and airway and remained controlled throughout the remainder of the procedure. A tourniquet was placed on the left upper thigh and the leg was prepped in a sterile fashion. The surgeon then scrubbed at this time .Upon reentering the room left lower extremity was draped in a standard orthopedic fashion. A timeout was then called and everyone agreed upon the side, the site, the procedure to be performed, patient's identity and antibiotics given. Esmarch bandage was used to exsanguinate the extremity and the tourniquet was placed up to 250 mmHg with the knee in flexion. A midline skin incision was made and sharp dissection was taken down through skin subcutaneous tissue and fat. The standard medial parapatellar incision was made and the patella was subluxed laterally. An Appropriate deep MCL release was done and the fat pad was resected. Upon approach we noted we had a venous tourniquet due to the patient's obesity and girth of the leg. Tourniquet was let down. Leg was reexsanguinated tourniquet was placed up to 300 mmHg. Even with this we had a venous tourniquet. We elected to do the remainder of the procedure without the tourniquet. Our attention was then directed to the patella. The patella was everted and found to be appropriate for retention. Once this was completed the knee was placed in extension and a complete synovectomy was performed due to the significant metallosis and black synovium noted in the knee. Based on the patient's size and inability to have an appropriate tourniquet this did take additional time as we try to maintain hemostasis throughout this. The knee was then flexed up in 2 femoral pins were placed outside of the incision and 2 tibial pins were placed outside the incision in the medial tibia bicortically. Once this was completed the 2 checkpoints in the femur and tibia were placed. Knee was then flexed up and the bony landmarks were registered. Once this was completed knee was taken through range of motion and manually stressed allowing us to a plan for an appropriate tibial and femoral cut cut. Once we adequately tested the soft tissues and registered and performed our surgical plan an osteotome was then were used to remove the distal femoral component on the medial side of the knee as well as any excess cement. We then directed our attention to the tibia where the polyethylene was removed. It was noted that the tibia had erosion of the anterior medial portion of the plate causing metallosis. Osteotome was used to separate the implant from the bone and cement interface and excess cement was removed. This took additional time to address these previous implants. The robotic arm was brought into the field sterilely and checkpoint and saw were registered. Based on the patient's deformity the tibial cut was made in 3 degrees of varus. Once we were happy with our operative plan with balanced flexion and extension gaps our attention was directed to the femur. The robot was brought into the field sterilely and registered. Posterior condylar cuts, anterior chamfer cuts and anterior cuts were appropriately made for a size 4 femur. When these were completed the saws were switched out in the distal femoral and posterior chamfer cuts were made. Protecting the soft tissue throughout this time. During the procedure was noted that with the bone loss patient did require a 5 mm posterior medial femoral augment and a 5 mm distal medial femoral augment. The plan was adjusted for these and these cuts were made which took additional time. A size 5 tibial base plate was selected. the knee was flexed to 90 degrees and the soft tissues and posterior osteophytes were removed from the joint. 40 cc of the periarticular injection was injected into the posterior medial corner of the joint. The appropriate trials were then placed on the femur and tibia. A trial polyethylene was trialed to ensure proper balancing and stability of the knee. The appropriate tibial internal rotation was then marked with a bovie. Our attention was then directed to the patella. Patellar tracking was checked and deemed appropriate. Once we were happy knots cut was made for the distal femur femur and trial components were removed. The tibia was subluxed and pinned into place and the keel was punched and drilled appropriately. Final components were verified and opened. The wound was copiously irrigated with normal saline. When the cement was ready the components were cemented into place starting with the tibia then the femur. The trial poly component was placed and the knee was placed in full extension. Once the the implants were secured, the tracking, alignment and balance were verified and a size 10 mm PS polyethylene component was placed. Once the final components were placed a 3-minute dilute Betadine lavage was performed followed by an Irrisept lavage was performed and the wound was copiously irrigated with normal saline solution and the periarticular injection was given. The wound was closed in a layer catalan fashion using #1 vicryl interrupted sutures for the arthrotomy, 2-0 interrupted Vicryl suture for the subcuticular layer and xochilt for final skin closure. A sterile compressive dressing was then placed. The patient was then awakened from anesthesia, transferred to the [facility] and transferred to the PACU for recovery. Post op plan DVT ppx: Resume Coumadin tomorrow, bridged with Lovenox starting tomorrow, thigh high compression stockings Follow up: in office in 2 weeks for wound check PT: to start POD #0 at hospital, outpatient PT should be arranged. My physician assistant professor of history was a vital part of this case, they was important because there was not another skilled set of hands available to their training and aptitude needed for safe and appropriate completion of this case. They were important in appropriate retraction during the case, and protection of soft tissues during bony cuts. In particular the experience and skill of this assistant professor of history made for safe retraction and exposure during implantation of medical implants without damage to vital soft tissues or structures. His intimate knowledge of the case and my steps aided in safe and expedient completion of the procedure as well as appropriate position of the leg during the case. He was also vital in assisting with closure under my direct supervision. Due to the complexity of this case robotic arm was used to assist in the surgery to improve accuracy and clinical outcomes. Modifier 22: This case is billed as a [id number] primary total knee replacement however, as noted above there were additional steps that took additional time in comparison to a primary total knee replacement. This should be taken into consideration. The steps are listed including patient's obesity limiting use of tourniquet effectiveness requiring hemostasis throughout the procedure. Removing femoral and tibial implants and excessive cement. Addressing femoral bone loss including distal femoral augments and posterior femoral augments medially. Additionally throughout the procedure positioning and repositioning patient's large obese leg took additional time. Ultimately primary total knee replacement takes roughly an 1:15 from start to finish whereas this one took 2-1/2 hours with the need to address these issues. This should be taken into consideration during compensation with a modifier 22. Surgical Findings: Stage IV osteoarthritis. Stable knee with good patella tracking Complications Complications: No Admit VTE Documentation VTE Present on Admission: No VTE Mechan Device Prophylaxis: SCD's and Thigh High WALLY Hose VTE Pharm Prophylaxis ordered?: Yes
--- NOTE | 2025-02-17 14:24 | PCM.POST.ANE ---
Anesthesia: Postop Eval I Current Vital Signs Temperature: 97.2 F Pulse Rate: 77 Blood Pressure: 119/77 Respiratory Rate: 18 Pulse Ox: 99 Oxygen Delivery Method: Nasal Cannula Oxygen Flow Rate (L/min): 4 Assessment Airway patent: Yes Spontaneous unlabored respirations: Yes Mental status: Awake and Calm nausea: No Vomiting: No Anesthesia Complication: No Fluid Hydration Crystalloid volume administer (ml): 600 Total IV fluid infused: 600 Progress Note Anesthesia document: Postop Eval 1 completed: Yes
--- NOTE | 2025-02-17 14:28 | PCM.POSTANE2 ---
Anesthesia Postop Eval I Sum Postop Eval Completion status Anesthesia document: Postop Eval 1 completed: Yes Anesthesia Postop Eval I Summary Anesthesia Postop Eval I Summary: Anesthesia Postop Eval I: Assessment Summary Airway patent Yes 02/17/25 14:25 Spontaneous unlabored Yes 02/17/25 14:25 respirations Mental status Awake,Calm 02/17/25 14:25 nausea No 02/17/25 14:25 Vomiting No 02/17/25 14:25 Anesthesia Postop Eval I: Fluid Summary Crystalloid volume administer 600 02/17/25 14:25 (ml) Colloids volume administered ( ml) Blood Product volume administered (ml) Total IV fluid infused 600 02/17/25 14:25 Anesthesia Postop Eval I: Summary Notes Anesthesia Complication No 02/17/25 14:25 Anesthesia Complication Comment: Post-operative progress note Anesthesia: Postop Eval II Evaluation Mental status: Awake Pain Level: 2 nausea: No Vomiting: No
[2025-02-17] MEDS: LR 1,000 ML - 125 ML/HR (POST BOLUS) POST OP IV (15:30)
[2025-02-17] MEDS: Clindamycin 600 MG/50 ML BAG 100 MG IV ×2 (16:39→21:21)
[2025-02-17] MEDS: Ensure Surgery 237 ML LIQUID PO (16:47)
--- NOTE | 2025-02-17 20:09 | PCM.CONS.GEN ---
Assessment & Plan Assessment/Plan (1) History of pulmonary embolism: (2) History of recurrent DVT: PLAN: Plan 74-year-old male admitted after elective left knee total replacement 1. Left knee failed medial partial knee replacement: Patient had left knee minimally invasive robotic assisted total arthroplasty on 02/17/[address] Cuellar. Patient had voided urine. Has not moved bowel after surgery but passing flatus. On a stool softener. Pain controlled. PT and OT ordered. Incentive spirometry. Rest of the perioperative care as per orthopedic surgeon. Follow CBC with differential and BMP tomorrow AM. 2. History of bilateral DVT and PE: Patient on warfarin. INR 1.9, subtherapeutic. On enoxaparin 100 mL SQ every 12 hourly therapeutic dose as bridging therapy until INR is therapeutic. Patient on warfarin 5 mg Monday, Monday, and Monday. On warfarin 2.5 mg on Monday. Monitor INR daily. 3. DM type II: Glucose is 141. Hold glimepiride and pioglitazone. Can resume from tomorrow. Accu-Chek before meals and at bedtime with Humalog sliding scale coverage and hypoglycemia protocol. 4. Mild anxiety and depression: Patient on fluoxetine continued 5. Chronic primary degenerative arthritis of bilateral knees: As mentioned above. PT and OT Laboratory Results 02/17/25 08:15: POC PT 21.6 H, INR 1.9 02/17/25 08:35: PT 14.7, INR 1.1 02/17/25 08:38: Magnesium 2.0 02/17/25 08:48: POC Glucose 141 H HPI Consult Data Date of Consult: 02/17/25 HPI Narrative HPI Narrative: SUNSHINE EGAN, is a 74 M who is admitted for elective left knee minimally invasive robotic assisted total arthroplasty after he failed previous left knee medial partial knee [place] [address] Carranza. Patient also had Unicompartment knee replacement in 2008. Patient pain is well-controlled. He voided urine after surgery. Last bowel movement was day before yesterday. No chest pain or shortness of breath. Patient has history of bilateral lower extremity DVT and PE in 2009 for which he is on warfarin. INR subtherapeutic. Denies any acute symptoms. [facility] Medical History Loss of hearing Wears glasses Wears dentures Cancer Depression Diabetes Bladder disease Arthritis High cholesterol Pulmonary embolism DVT (deep venous thrombosis) Injury of back Back pain TIA (transient ischemic attack) Former smoker Shortness of breath on exertion CPAP (continuous positive airway pressure) dependence Leg cramps History of edema Cardiology follow-up encounter History of stress test Home Medications ?Medication ?Instructions ?Recorded ?Last Taken ?Type fluoxetine 20 mg capsule 20 mg PO QHS 02/14/13 02/16/25 History warfarin 5 mg tablet (Jantoven) 2.5 mg PO MO 02/14/13 02/03/25 History cholecalciferol (vitamin D3) 25 50 mcg PO DAILY 02/04/25 02/16/25 History mcg (1,000 unit) capsule (Vitamin D3) fenofibrate 160 mg tablet 160 mg PO QHS 02/04/25 02/16/25 History glimepiride 1 mg tablet 1 mg PO QHS 02/04/25 02/16/25 History pioglitazone 30 mg tablet 30 mg PO QHS 02/04/25 02/16/25 History tramadol 50 mg tablet 50 mg PO Q12H PRN pain 02/04/25 Unknown History warfarin 5 mg tablet 5 mg PO SUTUTHSA 02/04/25 02/09/25 History Allergy/AdvReac Type Severity Reaction Status Date / Time cephalexin (From Keflex) Allergy Anaphylaxis Verified 02/14/25 09:23 Surgical History Hx of gastric bypass Hx of right knee surgery Hx of left knee surgery Hx of left knee surgery Hx laparoscopic cholecystectomy History of carpal tunnel surgery of right wrist History of carpal tunnel surgery of left wrist Hx of colonoscopy Social History Smoking Status: Former smoker ROS ROS Narrative Constitutional: Denies acute fatigue and weakness. No fever. HEENT: Reports systems reviewed and no addt'l complaints, except as documented Respiratory/Chest: No acute shortness of breath or respiratory distress or wheezing. CVS: No chest pain or shortness of breath. Denies chronic heart condition. Gastrointestinal: Denies coffee ground emesis, hematemesis or vomiting Genitourinary: Denies burning urination or new urinary tract symptoms Musculoskeletal: As mentioned in HPI Neurologic: Denies seizure-like symptoms. skin: No ulcer. No rash Endocrinology: Reports systems reviewed and no addt'l complaints, except as documented Hematologic/Lymphatic: Reports systems reviewed and no addt'l complaints, except as documented Rest 14 ROS are negative except as mentioned in HPI Physical Exam Narrative General: Alert, Oriented x3, Cooperative. BMI 43.1 kg/m?, morbid obesity HEENT: Atraumatic, PERRLA, EOMI, Normocephalic. Oral: Deep oropharyngeal McCleery could not be visualized Neck: Supple, No JVD, Negative Carotid Bruits Chest wall/Lungs: Air entry diminished in bilateral lung bases. No crepitation/rhonchi Cardiovascular: sinus rhythm, No M/G/R Abdomen: Bowel Sounds Present, Soft, Non Tender, Non-Distended : No dysuria. No renal angle tenderness. No suprapubic tenderness. Extremities: No edema, Capillary Refill Less than 3 Seconds Skin: No rashes, left knee dressing is dry. Musculoskeletal: Left knee surgical dressing is intact. No hematoma. Dressing is dry. No acute tenderness to Palpation of Joints or Extremities Neurological: Cranial nerves II-XII grossly intact, DTR 2+/4. No acute focal neurological deficit. Psych/Mental Status: Normal Affect, Appropriate. Lab / Micro Data Labs: Laboratory Results - last 24 hr 02/17/25 08:15: POC PT 21.6 H, INR 1.9 02/17/25 08:35: PT 14.7, INR 1.1 02/17/25 08:38: Magnesium 2.0 02/17/25 08:48: POC Glucose 141 H Imaging Radiology Impression Knee X-Ray 02/17/25 10:03 IMPRESSION: Hardware in position. Reading Location: [facility] Charges/Coding Visit Charges Office Visits / Consults: 60513 OV L3 New 30min
[2025-02-17] MEDS: Senna/Docusate Sodium 1 Tablet 2 TABLET PO (21:15)
[2025-02-18 02:57] VITALS: BMI 43.1
[2025-02-18] MEDS: Clindamycin 600 MG/50 ML BAG 100 MG IV (04:53)
[2025-02-18 04:56] VITALS: BP 118/52; PULSE 72; RESP 15; TEMP 36.4; O2SAT 94
[2025-02-18 06:14] LABS: Hematocrit 27.7 % (40-54); Hemoglobin 9.2 g/dL (13.0-16.5); Mean Corp Hgb Conc 33.2 g/dL (32-36); Mean Corpuscular Volume 86.6 fL (80-94); Mean Platelet Vol. 10.0 fl (6.2-12.0); Platelet Count 136 K/mm3 (150-450); RBC Distribution Width CV 14.9 % (11.6-14.6); RBC Distribution Width SD 47.5 fl (35.1-43.9); Red Blood Count 3.20 M/mm3 (4.6-6.2); White Blood Count 10.5 K/mm3 (4.4-11.0)
[2025-02-18 06:35] LABS: Prothrombin Time (Protime)PT. 15.6 SECONDS (11.7-14.9)
[2025-02-18 06:44] VITALS: BMI 43.1
[2025-02-18 06:44] LABS: Anion Gap 10 (5-15); BUN 23 mg/dL (4-19); BUN/Creat Ratio 29.6 RATIO (10-20); Calcium,Total 8.9 mg/dL (7.6-11.0); Carbon Dioxide 23.7 mmol/L (21.0-32.0); Chloride 104 mmol/L (98-108); Estimated Creatinine Clearance 116.12 ml/min (50-250); Glucose 251 mg/dL (70-99); Potassium 4.5 mmol/L (3.3-5.1)
[2025-02-18 07:51] VITALS: BP 118/54; PULSE 70; RESP 16; TEMP 36.8; O2SAT 96
[2025-02-18] MEDS: Ensure Surgery 237 ML LIQUID PO (07:55)
[2025-02-18] MEDS: Senna/Docusate Sodium 1 Tablet 2 TABLET PO (07:56)
[2025-02-18] MEDS: Cholecalciferol (VIT D3) 25 MCG TABLET (1,000 UNITS) 50 MCG PO (07:57)
--- NOTE | 2025-02-18 09:38 | PN.ORTHO_ITS ---
Subjective Subjective Patient is sitting comfortably in bed upon examination. Patient states he is doing well at this time and his pain is adequately controlled. Patient states he does plan to go home. Patient states he does have help at home from his . Patient denies any nausea, vomiting, dizziness. Patient denies any fevers, chills, signs infection. Patient denies any shortness of breath, chest pain, calf pain. Patient denies any numbness or tingling. Patient denies any adverse events overnight. Patient states that physical therapy and went well and he is feeling comfortable to go home at this time. Objective Data Objective Data Vital Signs: Vital Signs Temp Pulse Resp BP Pulse Ox O2 Del Method O2 Flow Rate 98.3 F 70 16 118/54 L 96 Room Air 2 02/18/25 07:51 02/18/25 07:51 02/18/25 07:51 02/18/25 07:51 02/18/25 07:51 02/18/25 07:51 02/17/25 14:58 Oxygen Flow Rate (L/min) 2 Oxygen Delivery Method Room Air Weight: 136.4 kg Body Mass Index (BMI) 43.1 Intake & Output: Intake and Output for Last 24 Hours 02/16/25 02/17/25 02/18/25 23:59 23:59 23:59 Intake Total 5542 / 6342 1850 / 1850 Output Total 2350 / 3250 900 / 900 Balance 3192 / 3092 950 / 950 Lab / Micro Data 02/18/25 05:32 02/18/25 05:32 Labs: Laboratory Results - last 24 hr 02/17/25 21:26: POC Glucose 292 H 02/18/25 05:32: WBC 10.5, RBC 3.20 L, Hgb 9.2 L, Hct 27.7 L, MCV 86.6, MCH 28.8, MCHC 33.2, RDW Std Deviation 47.5 H, RDW Coeff of Ita 14.9 H, Plt Count 136 L, MPV 10.0, PT 15.6 H, INR 1.2, Sodium 137, Potassium 4.5, Chloride 104, Carbon Dioxide 23.7, Anion Gap 10, BUN 23 H, Creatinine 0.79, Estim Creat Clear Calc 116.12, Est GFR (MDRD) Non-Af 95, BUN/Creatinine Ratio 29.6 H, Glucose 251 H, H emoglobin A1c 7.4 H, Calcium 8.9 02/18/25 06:39: POC Glucose 243 H Radiography Diagnostic Testing: Radiology Impression Knee X-Ray 02/17/25 10:03 IMPRESSION: Hardware in position. [facility] Physical Exam Narrative WALLY hose in place bilaterally SCDs in place bilaterally Mepilex dressing was saturated on the distal one third. Dorsiflexion and plantarflexion are performed actively without pain or restriction Sensation intact light touch. Neurovascularly intact overall. Negative Homans bilaterally. Const alert, oriented x3 and no apparent distress Assessment & Plan Assessment/Plan (1) Status post total left knee replacement: PLAN: Status post left minimally invasive robotic assisted total arthroplasty day 1. 1. DVT prophylaxis: Patient's primary care provider stated that he would like patient to be bridged with Lovenox after surgery as well. This was unclear how many days he would like him to be bridged for. Patient was educated to call his primary care provider to see if his primary care provider wanted to send him in the Lovenox. Patient was educated I would send in a 3-day supply but I would not pick it up until he talks to his primary care provider. Patient is regularly on Coumadin. Patient was educated to wear his WALLY hose for 2 weeks postoperatively. 2. Pain medications: Patient will be taking Tylenol 1000 mg every 8 hours, oxycodone as needed for postoperative pain control. 3. Physical therapy: Patient will continue to be weightbearing as tolerated with walker. Patient will need outpatient physical therapy established. 4. Constipation: Patient was instructed to take senna until her first bowel movement and then can decrease to as needed. Patient was educated they do not have a bowel movement within 3 days to contact our office. 5. H&H: .05/09.7. Patient will need to begin following anemia protocol at this time. Vitals are stable and patient is afebrile at this time. Patient was educated we will have him get labs and follow-up with his primary care provider within 2 weeks to manage chronic anemia. Patient voiced understanding. 6. Doxycycline: Patient will be placed on doxycycline for 2 weeks postoperatively. Patient was educated on increased risk of sunburn and the benefit of taking a probiotic with antibiotic. Patient voiced understanding. 8. Incentive spirometry: Patient was encouraged to use incentive spirometer every hour therapy for first week to exercise along decrease risk of postoperative lung infection. 9. Dressings: Patient was educated he will have waterproof dressing for 5 days. Patient was educated she can take it off on postop day 5 which is Monday. Patient was educated she can leave open to air after this. 10. Patient is to follow-up for postoperative medication instructions. 11. Medicine is involved at this time for safe and proper discharge. 12. Patient will need a follow-up appointment with primary care provider in roughly 2 weeks with labs to manage chronic anemia. 13. Patient is okay for discharge today as long as pain maintains adequately controlled, patient works with and does well with physical therapy, and is okay per medicine doctor and case management instructions at this point. Patient was educated on beginning pneumonia protocol at this time. Patient was educated he would be taking 2 ferrous sulfate tablets and 1 folic acid tablet per day. Patient was educated he will need to get labs in 2 weeks and follow-up with primary care provider to manage chronic anemia. Patient voiced understanding. Patient is planning to call his primary care provider to find out how long his Lovenox needs to be bridged and if his primary care provider would like to send it in. Patient was educated I would send in a 3-day supply but do not pick it up until he talks to his primary care provider. Patient voiced understanding. Patient's medications will be sent to patient's pharmacy of choice. Patient was encouraged to continue working with physical therapy. Patient was educated to remain weightbearing as tolerated with walker. Patient does have 2 weeks follow-up visit scheduled with an outpatient physical therapy scheduled. Patient was encouraged to call with any questions, concerns, new problems.
--- NOTE | 2025-02-18 10:08 | CASEMGMT ---
PAMELA Met with patient to complete SANTIAGO form. SANTIAGO form and its content were verbally explained and patient's questions were answered to the best of my ability.? Patient voiced understanding and signed SANTIAGO form.? Patient declined copy. Original placed in patient's chart.? Patient had no further questions. Marie Zimmerman, Discharge Planning Asst
[2025-02-18 10:13] VITALS: RESP 18
[2025-02-18] MEDS: Warfarin (PBKC) 5 MG Tablet PO (10:24)
[2025-02-18 10:58] VITALS: BMI 43.1
--- NOTE | 2025-02-18 12:00 | CASEMGMT ---
SHAHRAM TAYLOR Assessment Face to Face with patient for initial transition planning/care coordination assessment. SHAHRAM TAYLOR introduced self and role at [facility], pt voices understanding. Pt is A&Ox4 and is resting comfortably in the chair and is calm. Care providers, pharmacy, and demographics verified. Admitting dx: LTKR LACE Strata: 1 PCP: Guy Jiménez Specialists: Radha (Ortho), Bhavin Browning Dermatology, Lisa (Podiatry) Preferred Pharmacy: [facility] Insurance: [employer] [facility] Prescription Benefit: Yes LNOK: Rand (W), Rajani (Daughter) Living Arrangements: Pt lives with his , GS and GS's family in a 2 story home with one step to enter ADLs/IADLs: Indep Transportation: Self, family DME: BGM with sufficient supplies. FWW. RTS. Grab bars. HHC/SNF: Denies hx of. Pt states that [facility] Pt?s goal: Home Plan: Home with OP therapy. Rx for OP PT/OT signed by AZAEL Veliz. Pt states that he prefers to schedule his own appt. Copy of Rx placed in the chart. Original Rx given to the pt at this time. Pt states that he plans to go through [place] again for OP Tx. Pt also plans to follow up with ortho x2 weeks from now. Pt also states that he feels safe and comfortable giving himself Lovenox shots. Pt denies any further questions or concerns at this time. Report given to MS3 SHAHRAM TAYLOR. Liz Bob RN, CM
--- NOTE | 2025-02-18 12:18 | DCINST_ITS ---
Discharge Instructions DC O2, CPAP, BIPAP needs Home O2 Discharge instructions: No Dressing / Incision Discharge Activity: May Not Drive (No driving until patient can walk 100 feet with use of cane and no longer taking narcotic pain medication.) Weight Bearing Status: Weight bearing as tolerated (With walker. ) Keep extremity elevated above heart level: Left Leg (Ice and elevate as needed. Keep a barrier between skin and ice.) Dressing / Incision Call your doctor if your incision/area has: Continuous Slow Oozing, Sudden Increased Bleeding, Increased Pain/ Swelling, Increased Redness, Foul Smelling Discharge and Swelling at the incision site Call your doctor if you observe: Fever of 101 or Higher, Coldness, Increased Pain, Numbness or Tingling, Change in Color, Inability to urinate, Inability to have a bowel movement, Using more than 1 pad per hour, Shortness of breath, Dizziness, Fainting spells, Swelling in the ankles, Chest pain, Increased palpitations (irregular heartbeat), Calf discomfort and Uncontrolled pain Remove Dressing in: 5 days (Remove dressing on day 5 postop. As long as incision is clean, dry, intact may leave open to air.) Cleanse incision/area with: Soap & Water (Gentle soap and water in the shower.) Additional Dressing/Incision Instructions:: No soaking or submerging for 6 weeks postoperatively. No lotions, salves, oils for 6 weeks postoperatively. Patient will begin anemia protocol at this time. Patient will have ferrous sulfate twice daily and folic acid 1 time per day. Patient is getting his INR checked by primary care in 1 week. Patient was educated to get these labs in 1 week and have primary care follow-up as needed as well. Patient was educated on the use of doxycycline. Patient was educated on increased risk of sunburn. Patient was encouraged take probiotic while taking antibiotic. OARRS report was reviewed today. Follow Up Care Test Results: Test results from this visit will be discussed in further detail at your follow- up appointment, if applicable. Discharge Plan Admission Admit Date/Time: 02/17/25 10:02 Attending Provider: Pascual Garcia Primary Care Provider: Guy Jiménez Consulting Providers: Yoselyn Garcia; Temo Chery Discharge Orders/Prescriptions Prescriptions: New acetaminophen 500 mg Tablet 1,000 mg PO Q8 Qty: 0 0RF Rx Instructions: 1000 mg of Tylenol every 8 hours. doxycycline monohydrate 100 mg Capsule 100 mg PO BID 14 Days Qty: 28 0RF oxycodone 5 mg Tablet 5 - 10 mg PO Q4H PRN PRN (Reason: As needed for postoperative pain) 7 Days Qty: 42 0RF sennosides-docusate sodium [Stimulant Laxative Plus] 8.6-50 mg Tablet 2 tab PO BID 3 Days Qty: 12 0RF Rx Instructions: Take until first bowel movement and then can take as needed. Continued warfarin [Jantoven] 5 MG tablet 2.5 mg PO MO Patient Comments: ON MONDAY blood thinner fluoxetine 20 MG capsule 20 mg PO QHS Patient Comments: AMXIETY, MOOD warfarin 5 mg tablet 5 mg PO SUTUTHSA glimepiride 1 mg tablet 1 mg PO QHS pioglitazone 30 mg tablet 30 mg PO QHS fenofibrate 160 mg tablet 160 mg PO QHS cholecalciferol (vitamin D3) [Vitamin D3] 25 mcg (1,000 unit) capsule 50 mcg PO DAILY tramadol 50 mg tablet 50 mg PO Q12H PRN (Reason: pain) Other Ambulatory Orders: CBC W/Diff, Automated (Routine) Timeframe: 1 Week Facility: [facility] - Location: Laboratory Ordered By: Keren Acevedo Prothrombin Time w/INR (Routine) Timeframe: 1 Week Facility: [facility] - Location: Laboratory Ordered By: Keren Acevedo Referrals / Follow Up: Guy Jiménez MD [Primary Care Provider, Medical] Disposition Disposition (needs filled in before D/C Order can be placed): Home, Self Care
--- NOTE | 2025-02-18 13:17 | CASEMGMT ---
Addendum entered by Kymberly Monte 02/18/25 13:42: Received tc from Kaia at [facility]. Appt made for 02/25/25 at 11am. Placed on dc instructions. Original Note: TC to Dr. Jiménez's office, left vm requesting appt in 1 wk as ortho ordered CBC and INR. Requested returned call.
[2025-02-18 14:58] VITALS: BMI 43.1
[2025-02-18 15:00] VITALS: BP 109/55; PULSE 86; RESP 16; TEMP 36.5; O2SAT 95
--- NOTE | 2025-02-18 17:43 | PN.HOSP_ITS ---
Reason for Visit Chief Complaint: . Subjective Subjective Patient was seen and examined today. His INR was low and I gave him extra warfarin today. Objective Data Objective Data Vital Signs: Vital Signs Temp Pulse Resp BP Pulse Ox O2 Del Method O2 Flow Rate 97.7 F L 86 16 109/55 L 95 Room Air 2 02/18/25 15:00 02/18/25 15:00 02/18/25 15:00 02/18/25 15:00 02/18/25 15:00 02/18/25 15:00 02/17/25 14:58 Oxygen Flow Rate (L/min) 2 Oxygen Delivery Method Room Air Weight: 136.4 kg Body Mass Index (BMI) 43.1 Intake & Output: Intake and Output for Last 24 Hours 02/16/25 02/17/25 02/18/25 23:59 23:59 23:59 Intake Total 5542 / 6342 3240 / 3240 Output Total 2350 / 3250 902 / 902 Balance 3192 / 3092 2338 / 2338 Lab / Micro Data 02/18/25 05:32 02/18/25 05:32 Labs: Laboratory Results - last 24 hr 02/17/25 21:26: POC Glucose 292 H 02/18/25 05:32: WBC 10.5, RBC 3.20 L, Hgb 9.2 L, Hct 27.7 L, MCV 86.6, MCH 28.8, MCHC 33.2, RDW Std Deviation 47.5 H, RDW Coeff of Ita 14.9 H, Plt Count 136 L, MPV 10.0, PT 15.6 H, INR 1.2, Sodium 137, Potassium 4.5, Chloride 104, Carbon Dioxide 23.7, Anion Gap 10, BUN 23 H, Creatinine 0.79, Estim Creat Clear Calc 116.12, Est GFR (MDRD) Non-Af 95, BUN/Creatinine Ratio 29.6 H, Glucose 251 H, H emoglobin A1c 7.4 H, Calcium 8.9 02/18/25 06:39: POC Glucose 243 H 02/18/25 11:23: POC Glucose 185 H 02/18/25 16:03: POC Glucose 178 H Micro: Microbiology 02/17/25 12:38 Tissue - Knee Gram Stain - Final 02/17/25 11:15 Tissue - Knee Gram Stain - Final 02/17/25 11:15 Wound - Knee Gram Stain - Final Physical Exam Const alert, oriented x3 and no apparent distress Constitutional Narrative: Patient has class III obesity General Appearance: cooperative, well kempt and well developed Orientation / Consciousness: awake, oriented to person, oriented to place and oriented to time HEENT normocephalic, head/scalp atraumatic and moist oral mucous membranes Eyes PERRL, EOMs intact bilaterally and conjunctivae normal Neck supple, no JVD, thyroid normal and no carotid bruits General: trachea midline Resp normal respiratory effort, no retractions and no use of accessory muscles Resp Narrative: Faint expiratory wheezes were noted bilaterally Auscultation: Negative for rales, rhonchi or wheezes Cardio regular rate, regular rhythm, S1 normal heart sound, S2 normal heart sound, no murmurs, no rub and no gallops GI normal to inspection, nondistended, normoactive bowel sounds, soft to palpation, non-tender and non-distended Extremity no clubbing, cyanosis or edema Skin no rashes or lesions noted General Skin Exam: no breakdown Neuro oriented x3, CN's II-XII intact bilaterally, no focal motor deficits and no sensory deficits noted Sensorium / Orientation: awake and alert Speech: speech normal Psych affect normal Assessment & Plan Assessment/Plan (1) Type II diabetes mellitus: PLAN: Plan 1. 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-patient's INR will be checked tomorrow if he remains in the hospital #3 chronic depression-patient is on fluoxetine #4 class III obesity-complicates care, management, recovery, and prognosis #5 left knee osteoarthritis-status post left knee minimally invasive robotic assisted total arthroplasty-orthopedic surgery is managing this aspect, they will discharge the patient when the patient is orthopedically stable Total clinical time spent by myself addressing the patient's medical issues, reviewing all of his data, and collaborating with patient's care team: 25 minutes Charges/Coding Visit Charges Inpatient E&M: [id number] [facility] L[facility]
--- NOTE | 2025-02-18 18:02 | PCM.HOSP.N ---
Hospitalist Note I had a discussion with Keren Acevedo regarding the patient, I feel it would be a good idea to have the patient take prophylactic Lovenox until his INR is above 2, I was able to contact the patient's and told her I would call in a prescription for Lovenox 40 mg syringes #5 1 daily starting tomorrow and use this until his INR is above 2. I also told the that I felt it was a good idea to have his INR checked this or Monday.
--- NOTE | 2025-02-18 18:20 | PCM.HOSP.N ---
Hospitalist Note Additional note: I had a discussion with Dr. Garcia concerning placing the patient on Lovenox, after much discussion I have decided to cancel the patient's Lovenox prescription and have him continue his Coumadin. Conversations were carried out by Dr. Garcia's staff with Dr. Jiménez who is the patient's primary care doctor and Dr. Jiménez did not feel the patient required additional anticoagulation other than his warfarin.
== END 2025-02-18 17:30 | disposition home or self-care (01) ==
LOC: SDC 13:47 → MS3 13:47
PROVIDERS: Anesthesiology; Internal Medicine; Student in an Organized Health Care Education/Training Program; Admitting Provider Specialist; PCP Family Medicine; Referring Provider Specialist; Visit Provider Specialist
PROC: (CPT S2900; principal; 2025-02-17 09:35)
DX: T84.093A Other mechanical complication of internal left knee prosthesis, initial encounter (principal); E66.813 Obesity, class 3; Z68.41 Body mass index [BMI] 40.0-44.9, adult; E11.9 Type 2 diabetes mellitus without complications; Z86.718 Personal history of other venous thrombosis and embolism; Z79.899 Other long term (current) drug therapy; Z87.891 Personal history of nicotine dependence; Z79.01 Long term (current) use of anticoagulants; T84.84XA Pain due to internal orthopedic prosthetic devices, implants and grafts, initial encounter; E78.00 Pure hypercholesterolemia, unspecified; Z79.84 Long term (current) use of oral hypoglycemic drugs; Z86.711 Personal history of pulmonary embolism; M17.10 Unilateral primary osteoarthritis, unspecified knee; Y79.2 Prosthetic and other implants, materials and accessory orthopedic devices associated with adverse incidents; Z98.84 Bariatric surgery status; K21.9 Gastro-esophageal reflux disease without esophagitis; F41.9 Anxiety disorder, unspecified; F32.A Depression, unspecified
CPT/HCPCS: 01402; S2900; 27487; 36415; 36416; 73560; 80048; 82962; 83036; 83735; 85027; 85610; 87015; 87070; 87075; 87102; 87116; 87176; 87205; 87206; 94668; 96361; 96365; 96366; 96367; 97162; 97165; 99221; 99406; C1776; G0378; J2405; J3475